=== PATIENT | male | born 1975 | race Caucasian/White ===

== ENCOUNTER 2018-06-13 07:37 | Day surgery (SDC) | payer MEDICAID, SELFPAY ==
--- NOTE | 2018-06-09 16:36 | PCM.HP.BLA ---
History and Physical Date of Admission: 06/09/18 HISTORY AND PHYSICAL ? Kyle Fawks 1975 ? ? REFERRING PHYSICIAN: ??Elie Casiano MD ? CHIEF COMPLAINT: ??Preop Est Consult (left inguinal hernia) ? HPI: Kyle is a 42 year old male with a complaint of a bulge ?and discomfort ?in his left inguinal region. ?The patient notes discomfort in this area with lifting and coughing. ?He has noticed this hernia for the past 1-1/2 years. ?The symptoms have increased, over the past 1 month. ? The patient notes no symptoms of bowel obstruction and denies nausea or vomiting. The patient was seen by his?primary care physician ?who felt the patient has a hernia. ?Kyle was referred for evaluation and treatment. ? The patient is being seen by me today at the request of Dr. Elie Casiano MD?for my opinion and advice regarding a left inguinal hernia. ? ? PAST MEDICAL HISTORY PAST MEDICAL HISTORY Diagnosis Date ? Exocrine pancreatic insufficiency ? ? Helicobacter pylori (H. pylori) ? ? ? PAST SURGICAL HISTORY PAST SURGICAL HISTORY Procedure Laterality Date ? PAST SURGICAL HISTORY OF ? 2001 ? L4/L% Lamiectomy ? PAST SURGICAL HISTORY OF ? 2004 ? sinus surgery ? ? CURRENT MEDICATIONS ? Current Outpatient Prescriptions: diphenhydrAMINE (BENADRYL) 25 mg capsule Take 25 mg by mouth daily at bedtime. Using 1/2 tablet at bedtime for sleep/allergies MULTIVIT &MINERALS/FERROUS FUM (MULTI VITAMIN ORAL) Take ?by mouth once daily. Cholecalciferol, Vitamin D3, 5,000 unit cap Take 5,000 Units by mouth as needed. 1-2 times/week VIT C/GASTON & CELERY EX/GRP E (TART GASTON ORAL) Take 500 mg by mouth as needed. FLUoxetine (PROZAC) 20 mg capsule Take 20 mg by mouth once daily. clonazePAM (KLONOPIN) 0.5 mg tablet Take 0.5 mg by mouth twice daily as needed. Using 0.25mg daily/occasionally an additional ?0.25mg as needed OTC PRODUCT zinc 30 mg 1/d DOCOSAHEXANOIC ACID/EPA (EPA FISH OIL ORAL) Take ?by mouth. Takes 1 tsp daily peg 3350-electrolytes (COLYTE) 240-22.72-6.72 gram solution Take 4000 ml as directed. ?Follow written instructions from the doctor's office. (Patient not taking: Reported on 05/26/2018 ) ? No current facility-administered medications for this visit. ? ALLERGIES: Environmental [Other]; Vicodan [Other] ? PERSONAL HISTORY: SOCIAL HISTORY Social History ??Marital status: ?Spouse name: ?Years of education: ?Number of children: 2 ? Occupational History Occupation ?Employer ?Comment ? [employer] ?[employer] ? ? Social History Main Topics ??Smoking status: Never Smoker ?Smokeless tobacco: Never Used ?Alcohol use: No ? FAMILY HISTORY: FAMILY HISTORY FAMILY HISTORY Problem Relation Age of Onset ? other (ms [Other]) Sister ? ? REVIEW OF SYMPTOMS: ??The review of systems data was entered by the nurse and reviewed by me ? Nursing Notes: Abbey Montaño LPN ?05/26/2018 ?9:47 AM ?Signed REVIEW OF SYSTEMS: ?General:???The patient NOTES fatigue, denies weight loss, denies weight gain, denies feeling hot, and denies feelings of cold. ?Eyes: ?The patient denies glaucoma, denies eye injury/surgery, wears glasses or contacts. ?Ear/Nose/Throat: ?The patient NOTES allergies, denies hayfever, denies ear infections, and denies bloody noses. ?Cardiovascular: ?The patient denies chest pain, denies heart disease, denies high blood pressure,denies cardiac stent, denies prior heart attack, denies irregular heart beat, denies high cholesterol, ?denies poor circulation, denies heart failure, other cardiac issues, denies claudication, denies cold feet, denies peripheral arterial stent. ?Respiratory: ?The patient denies tuberculosis, denies pneumonia, denies frequent cough, denies pulmonary embolism, denies shortness of breath, and denies coughing up blood. ?Gastrointestinal: ?The patient denies difficulty swallowing, denies acid reflux, denies ulcers, denies vomiting, denies jaundice/hepatitis, denies gallbladder problems, denies black or tarry stools, denies hemorrhoids, denies bleeding from rectum, denies diverticulitis, denies constipation, denies diarrhea, denies loss of stool control, and NOTES hernias. ?Kidney/Bladder: ?The patient denies kidney stones, denies urine infections, and denies bloody urine. ?Skin: ?The patient denies a history of skin cancer, denies bleeding/changing moles, and denies a history of skin rash. ?Neurologic: ?The patient denies a history of epilepsy/convulsions, denies headaches, denies head/spinal injuries, and denies stroke/TIA. ?Psychiatric: ?The patient NOTES psychiatric medications, NOTES depression, and denies voices, denies substance abuse. ?Endocrine: ?The patient denies thyroid disorders, denies diabetes, and denies hormonal problems. ?Hematologic: ?The patient denies a history of bruising, denies bleeding, and denies anemia, denies blood clots. ?Infections: ?The patient denies a history of measles and mumps, denies rheumatic fever, and denies sexually transmitted diseases. ?Musculoskeletal: ?The patient NOTES back pain/injury, denies back problems, NOTES sciatica, denies knee/foot trouble, denies arthritis, or denies gout. ? ? When was patient's last Mammogram screening? N/A ? ?Last Colonoscopy: ?None ? Abbey Montaño LPN ? PHYSICAL EXAMINATION: ? General: ?The patient is 42 year old male, well nourished, well hydrated in no acute distress. ?The patient is oriented to time, place, and person. ? VITALS: Blood pressure 126/80, pulse 100, temperature 36.1 ?C (97 ?F), height 185.4 cm (6' 1), weight 81.4 kg (179 lb 6.4 oz), SpO2 100 %.?Body mass index is 23.67 kg/m?.? ? HEENT: ?Normal cephalic, ataumatic, pupils are equally round, sclera are anicteric, mucous membranes are moist, oropharynx is clear. ?Neck has no masses, asymmetry or lymphadenopathy. ?Thyroid is unremarkable. ? Respiratory: ?Clear to auscultation and percussion. ?Normal respiratory excursion and pattern. ? Cardiac: ?Examination is regular rate and rhythm. ?No rubs, murmurs or additional cardiac tones ? Abdominal exam: ?Soft, nontender, ?with no palpable masses. ?No hepatosplenomegaly. ?A?small, reducible left inguinal hernia, no right inguinal or umbilical hernias are noted ? Rectal exam: ?exam deferred ? Extremities: ?no clubbing, cyanosis or edema. ?No adenopathy. ? Other: ? ? LABORATORY VALUES: As Noted ? RADIOLOGIC STUDIES: ?As Noted ? Assessment ? IMPRESSION: left inguinal hernia ? PLAN: ??My plan is to perform a open left inguinal hernia repair with mesh. ?The planned surgical procedure was discussed extensively with the patient. ?The risks, benefits, anticipated outcomes and possible complications were mentioned. ?Kyle gayleands that all hernia repair surgery has a chance of recurrence and/or chronic post operative pain. ?My staff has also explained the procedure in understandable terms and the patient was given the option to take printed material concerning the planned procedure. ?The patient had the opportunity to ask questions concerning the planned procedure. ?The patient freely consents to the planned procedure. ? ? ? A letter was sent to Dr. Elie Casiano MD?indicating the above finding for this patient. ? Diagnoses: (K40.90) Left inguinal hernia ?(primary encounter diagnosis) ? Anticipated CPT Code: open left inguinal hernia repair with mesh - 29115-629 ? Anticipated Anesthetic: MAC with local ? Patient weight: ?Blood pressure 126/80, pulse 100, temperature 36.1 ?C (97 ?F), height 185.4 cm (6' 1), weight 81.4 kg (179 lb 6.4 oz), SpO2 100 %.?BMI: ?Body mass index is 23.67 kg/m?. ? Planned antibiotic: Ancef 2gm IVPB product applications scientist to OR ? SCDs needed - Yes ? Return to Clinic: The patient is instructed to follow-up with me 1 week post operatively. ? Nishant Diaz MD
[2018-06-13 08:01] VITALS: BP 139/88; PULSE 82; RESP 16; TEMP 36.6; O2SAT 100; BMI 23.4
--- NOTE | 2018-06-13 09:00 | LIP_PTH ---
PATIENT: AILIN ROGERS [place] [facility] [place][id number] AGE/SX: 42/M ROOM: RE06/13/[address]: Dr. Nishant Diaz MD : 1975 BED: DIS: 06/13/2018 SPEC #: [id number] RECD: 06/13/18 12:46 STATUS: ELLIE RENubia #: [id number] TANA: 06/13/18 09:[address]: Nishant Diaz DEPT: SURGICAL PATHOLOGY RECD BY: Eugenio Latham ENTERED: 06/13/18 14:53 SP TYPE: LIPOMA OTHR DR: Dr. Chelita Casiano MD Tissues: Inguinal region, NOS Procedures: Surgery Specimen Level III HEADER OPERATION: Inguinal hernia, open, poss mesh PRE-OP DIAGNOSIS: Left inguinal hernia TISSUE SUBMITTED: Left groin cord lipoma MICROSCOPIC DIAGNOSIS Left groin cord lipoma: Mature adipose tissue, consistent with lipoma. SJ:haider 06/14/18 MICROSCOPIC DESCRIPTION Slides are reviewed. GROSS DESCRIPTION Received in fixative is one container labeled with the patient's name and designated cord lipoma. The specimen consists of an irregular piece of yellow adipose tissue measuring 8 x 4 x 2 cm. Sections reveal yellow adipose cut surfaces without area of hemorrhage, necrosis or cystic degeneration. Supreme Court Judge sections are submitted in one cassette. / SJ:haider 06/13/18 TC:1 CPT: 23363
[2018-06-13] MEDS: Cefazolin 2 GM in 0.9% Normal Saline 100 ML IV (09:24)
[2018-06-13] MEDS: Bupivacaine Mpf 0.5% 30 ML VIAL (09:48)
--- NOTE | 2018-06-13 10:46 | PCM.OPRPT ---
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 Sign in was performed verifying patient, site, procedure, position, and DVT prophylaxis with SCDs. Patient received 2 g Ancef antibiotic prophylaxis. Following induction of IV sedation, the patient?s left inguinal region was prepped and draped in the usual fashion. Timeout was performed verifying patient, site, position. Local anesthetic was injected at the site of the anterior superior iliac spine for a regional block. The 50-50 mixture of lidocaine and Marcaine was then injected along the planned course of the skin incision. A linear incision was made and dissection carried down to the external oblique aponeurosis. Traversing veins ligated with 3-0 Vicryl ties and divided. Local anesthetic was then injected into the inguinal canal. A clean scalpel blade was used to open the lower canal in the direction of the fibers and a Metzenbaum scissor was used to further dissect and open the canal. Care was taken to avoid injury to the ilioinguinal nerve. Following this, the spermatic cord was surrounded at the level of the pubic tubercle and brought up in the operative field with a Naheed drain. Dissection was continued up to the internal ring clearing the cremasteric fibers. The patient was noted to have an indirect inguinal hernia with mostly cord lipoma as opposed to true hernia sac. The ring was weak but felt to be small enough to not warrant placing a plug. Onlay mesh was secured using a Bard keyhole shaped mesh secured at the level of the pubic tubercle and run from Peyman?s ligament transitioning to the ilioinguinal ligament inferiorly using an 0 Prolene suture. Next an 0 Prolene suture was used to secure the mesh to the transversus arch. The tails of the mesh were placed around the spermatic cord to create a new internal ring and the tails closed with a running 0 Prolene suture. The spermatic cord and the ilioinguinal nerve returned to its anatomic position. The external oblique was closed with a running 0 Vicryl suture. Subcutaneous fat was closed with interrupted 3-0 Vicryl suture. Skin was closed with a running 4-0 Monocryl subcuticular sutures. Steri-Strips and bandages were applied. The patient was brought to recovery room in stable condition. Grafts/Implants Used: Bard perfix ( onlay only) Ref [id number] - Lot [id number] - 03/16/2022 - Admit VTE Documentation VTE Present on Admission: No VTE Mechan Device Prophylaxis: SCD's
--- NOTE | 2018-06-13 10:49 | OP.PCM_ITS ---
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 Sign in was performed verifying patient, site, procedure, position, and DVT prophylaxis with SCDs. Patient received 2 g Ancef antibiotic prophylaxis. Following induction of IV sedation, the patient?s left inguinal region was prepped and draped in the usual fashion. Timeout was performed verifying patient, site, position. Local anesthetic was injected at the site of the anterior superior iliac spine for a regional block. The 50-50 mixture of lidocaine and Marcaine was then injected along the planned course of the skin incision. A linear incision was made and dissection carried down to the external oblique aponeurosis. Traversing veins ligated with 3-0 Vicryl ties and divided. Local anesthetic was then injected into the inguinal canal. A clean scalpel blade was used to open the lower canal in the direction of the fibers and a Metzenbaum scissor was used to further dissect and open the canal. Care was taken to avoid injury to the ilioinguinal nerve. Following this, the spermatic cord was surrounded at the level of the pubic tubercle and brought up in the operative field with a Naheed drain. Dissection was continued up to the internal ring clearing the cremasteric fibers. The patient was noted to have an indirect inguinal hernia with mostly cord lipoma as opposed to true hernia sac. The ring was weak but felt to be small enough to not warrant placing a plug. Onlay mesh was secured using a Bard keyhole shaped mesh secured at the level of the pubic tubercle and run from Peyman?s ligament transitioning to the ilioinguinal ligament inferiorly using an 0 Prolene suture. Next an 0 Prolene s uture was used to secure the mesh to the transversus arch. The tails of the mesh were placed around the spermatic cord to create a new internal ring and the tails closed with a running 0 Prolene suture. The spermatic cord and the ilioinguinal nerve returned to its anatomic position. The external oblique was closed with a running 0 Vicryl suture. Subcutaneous fat was closed with interrupted 3-0 Vicryl suture. Skin was closed with a running 4-0 Monocryl subcuticular sutures. Steri-Strips and bandages were applied. The patient was brought to recovery room in stable condition. Grafts/Implants Used: Bard perfix ( onlay only) Ref [id number] - Lot [id number] - 03/16/2022 - Admit VTE Documentation VTE Present on Admission: No VTE Mechan Device Prophylaxis: SCD's
[2018-06-13 10:50] VITALS: BP 103/68; BP 139/88; PULSE 87; RESP 20; TEMP 36.3; O2SAT 98
[2018-06-13 10:55] VITALS: BP 114/82; BP 139/88; PULSE 84; RESP 16; O2SAT 100
[2018-06-13 11:00] VITALS: BP 117/81; BP 139/88; PULSE 80; RESP 16; O2SAT 99
[2018-06-13 11:03] VITALS: BP 118/80; BP 139/88; PULSE 79; RESP 16; TEMP 36.3; O2SAT 99
--- NOTE | 2018-06-13 11:11 | DCINST_ITS ---
Discharge Diet: Light diet - advance as tolerated Discharge Activity: Return to Normal Activity, May Drive - when you are no longer taking narcotic pain medications., May Shower - with the bandage in place 1-2 days after surgery. Lifting Restrictions: 20 pounds for 8 weeks. Additional Activity Instructions:: Climbing stairs is fine, walking is encouraged. Sitting in bed may be uncomfortable. Sitting up using your lateral muscles (sitting up sideways) is usually more comfortable. Do not drive, work heavy equipment of sign legal documents for 24 hours. If your hernia repair was an ingunial repair, you may have scrotal swelling, an ice pack and/or athletic support can provide more comfort. Pain medications may cause nausea, you should typically eat light foods as you take your pain medications. Pain medications may also cause constipation. If you have difficulty with this, discuss with your doctor. Call your doctor if your incision/area has: Continuous Slow Oozing, Sudden Increased Bleeding, Increased Pain/ Swelling, Increased Redness, Foul Smelling Discharge Call your doctor if you observe: Fever of 101 or Higher Suture Line Care: Avoid Pulling/Pushing, Avoid Pinching/Bending Additional Dressing/Incision Instructions:: Leave the operative bandage on for 2-3 days. When you remove the bandage, leave the steri-strips on place until your follow up appointment or they fall off. Allergies/Adverse Reactions: Allergies Sulfa (Sulfonamide Antibiotics) Allergy (Verified 06/06/18 09:07) Unknown acetaminophen [From Vicodin] Adverse Reaction (Verified 06/06/18 09:07) Unknown hydrocodone [From Vicodin] Adverse Reaction (Verified 06/06/18 09:07) Unknown rofecoxib [From Vioxx] Adverse Reaction (Verified 06/06/18 09:07) Unknown Medications to take at Discharge Clonazepam [Klonopin] 0.25 mg PO DAILY 06/06/18 Fluoxetine [Prozac] 20 mg PO DAILY 06/06/18 [place] 1 pkt PO DAILY 06/06/18 Oxycodone HCl/Acetaminophen [Percocet 5/325] 1 tab PO Q6H PRN PRN 7 Days #8 tab 06/13/18 The following prescriptions were given: Oxycodone HCl/Acetaminophen [Percocet 5/325] 1 tab PO Q6H PRN PRN 7 Days #8 tab PRN Reason: Pain Primary Care Physician: Chelita Casiano MD [Primary Care Provider] - Test Results: Test results from this visit will be discussed in further detail at your follow- up appointment, if applicable. Please Follow Up With: Nishant Diaz MD - [phone] When: Plan to have a follow up appointment in 7 days. Call to schedule.
[2018-06-13 12:25] VITALS: BP 139/88
== END 2018-06-13 12:34 | disposition home or self-care (01) ==
LOC: SDC 07:38 → AC 07:40
PROVIDERS: Family Provider Family Medicine; PCP Family Medicine; Referring Provider Surgery; Visit Provider Surgery
PROC: (CPT 49505; principal; 2018-06-13 08:45)
DX: K40.90 Unilateral inguinal hernia, without obstruction or gangrene, not specified as recurrent (principal); D17.6 Benign lipomatous neoplasm of spermatic cord; F41.9 Anxiety disorder, unspecified; F32.9 Major depressive disorder, single episode, unspecified; Z79.899 Other long term (current) drug therapy
CPT/HCPCS: 49505; 55520; 88304; J7120; C1781; J2405